=== PATIENT | female | born 2005 | race African-American/Black ===

== ENCOUNTER 2025-05-10 18:09 | Emergency (ER) | payer MEDICAID ==
[~2025-05-10] VITALS: Ht 160 cm; Wt 65.0 kg
[2025-05-10 18:20] VITALS: O2SAT 100
[2025-05-10] MEDS: DEXAMETHASONE 10 MG/ML VIAL IV ONE (19:11)
[2025-05-10] MEDS ORDERED: AMOX-494 MT (19:45)
[2025-05-10 20:00] VITALS: BP 123/78; PULSE 75; RESP 18; TEMP 37.1; O2SAT 100
== END 2025-05-10 20:00 | disposition home or self-care (01) ==
LOC: ER 18:09
DX: J02.0 Streptococcal pharyngitis (principal); R05.9 Cough, unspecified
CPT/HCPCS: 99283; 96374; 87430; J1100